=== PATIENT | male | born 1990 | race Two or more races ===

== ENCOUNTER 2021-11-22 16:37 | Emergency (ER) | payer OTHER ==
[2021-11-22 16:56] VITALS: BP 119/72; PULSE 67; RESP 18; TEMP 98.7; BMI 34.0
[2021-11-22] MEDS ORDERED: DIPHTH,PERTUSS(ACELL),TET 0.5 ML DISP.SYRIN IM ONE ×2 (18:27→18:29)
== END 2021-11-22 18:50 | disposition home or self-care (01) ==
LOC: FER 16:37
PROC: 3E0234Z Introduction of Serum, Toxoid and Vaccine into Muscle, Percutaneous Approach (ICD-10-PCS; principal; 2021-11-22)
DX: S60.222A Contusion of left hand, initial encounter (principal); W22.8XXA Striking against or struck by other objects, initial encounter
CPT/HCPCS: 73130-TC-LT-FY; 73130-TC-RT-FY; 90715; 99284-25

== ENCOUNTER 2022-07-25 21:01 | Emergency (ER) | payer OTHER ==
[2022-07-25 21:09] VITALS: BP 139/90; PULSE 112; RESP 16; TEMP 99.3; BMI 34.2
[2022-07-25] MEDS ORDERED: FLUORESCEIN NA 1 EA STRIP ONE (22:05)
[2022-07-25] MEDS ORDERED: TETRACAINE 0.5% OPHTH SOLN 2 ML BOTTLE ONE (22:06)
== END 2022-07-25 23:17 | disposition home or self-care (01) ==
LOC: FER 21:01
DX: H57.89 Other specified disorders of eye and adnexa (principal); Z77.098 Contact with and (suspected) exposure to other hazardous, chiefly nonmedicinal, chemicals
CPT/HCPCS: 99282-25